=== PATIENT | male | born 1990 | race Caucasian/White ===

== ENCOUNTER 2017-04-05 13:29 | Observation (INO) | payer OTHER ==
--- NOTE | 2017-04-05 13:53 | PDOC ---
History of Present Illness <Jazmin Johnston - Last Filed: 04/05/17 22:03> - History of Present Illness Initial Comments: 26 year old male with history of occasional postprandial epigastric pain presenting with epigastric pain, nausea, and NBNB vomiting after attempting to eat a grilled cheese sandwich this afternoon. He usually takes some xantac with relief. He tried that today along with pepto bismal but it tid not help him. The pain is a 6/10 sharp epigastric pain that radiates to his back. Denies fevers chills, diarrhea, SOB, chest pain, cough, myalgias, or other sick symptoms. He does not have a PCP. 04/05/17 14:34 <Darvin Moorekatrin - Last Filed: 04/05/17 22:16> - General Chief Complaint: Pain, Acute Stated Complaint: ABD PAIN Time Seen by Provider: 04/05/17 13:53 Past History <Jazmin Johnston - Last Filed: 04/05/17 22:03> - Past Medical History CVA: No COPD: No - Immunization History Immunization Up to Date: Yes - Suicide/Smoking/Psychosocial Hx Smoking History: Never smoked Have you smoked in the past 12 months: No Information on smoking cessation initiated: No Hx Alcohol Use: No Drug/Substance Use Hx: No Substance Use Type: None <Darvin Moorejeraldmeet - Last Filed: 04/05/17 22:16> - Past Medical History Allergies/Adverse Reactions: Allergies Allergy/AdvReac Type Severity Reaction Status Date / Time No Known Allergies Allergy Verified 04/05/17 13:37 Home Medications: Ambulatory Orders Mag Hydrox/Aluminum Hyd/Simeth [Maalox Advanced Suspension] 148 ml PO BID PRN # 1 bottle 04/05/17 Ranitidine HCl [Zantac 75] 75 mg PO DAILY PRN 04/05/17 Review of Systems - Review of Systems Constitutional: No: Chills, Diaphoresis, Fever HEENTM: No: Blurred Vision, Recent change in vision Respiratory: No: Cough, Shortness of Breath, Wheezing Cardiac (ROS): No: Chest Pain, Irregular Heart Rate, Chest Tightness ABD/GI: Yes: Nausea, Vomiting. No: Diarrhea, Poor Appetite : No: Burning, Dysuria, Discharge Integumentary: No: Bruising, Erythema, Flushing, Lesions Neurological: No: Headache, Numbness <Quan Moore - Last Filed: 04/05/17 22:16> *Physical Exam - Vital Signs Last Vital Signs Temp Pulse Resp BP Pulse Ox 97.5 F L 92 H 16 152/94 100 04/05/17 13:37 04/05/17 13:37 04/05/17 13:37 04/05/17 13:37 04/05/17 13:37 <Jazmin Johnston - Last Filed: 04/05/17 22:03> - Vital Signs Last Vital Signs Temp Pulse Resp BP Pulse Ox 97.5 F L 92 H 16 152/94 100 04/05/17 13:37 04/05/17 13:37 04/05/17 13:37 04/05/17 13:37 04/05/17 13:37 - Physical Exam General Appearance: Yes: Nourished, Appropriately Dressed. No: Apparent Distress HEENT: positive: EOMI, TONIA, Normal ENT Inspection Neck: positive: Trachea midline, Normal Thyroid, Supple. negative: Tender, Rigid Respiratory/Chest: positive: Lungs Clear, Normal Breath Sounds. negative: Chest Tender, Respiratory Distress, Accessory Muscle Use Cardiovascular: positive: Regular Rhythm, Regular Rate Gastrointestinal/Abdominal: positive: Normal Bowel Sounds, Flat, Soft. negative : Tender Musculoskeletal: positive: Normal Inspection. negative: CVA Tenderness Extremity: positive: Normal Capillary Refill, Normal Inspection, Normal Range of Motion, Tender Integumentary: positive: Normal Color, Dry, Warm Neurologic: positive: Fully Oriented, Alert, Normal Mood/Affect, Normal Response , Motor Strength 5/5 <Darvin Moorejeraldmeet - Last Filed: 04/05/17 22:16> ED Treatment Course - LABORATORY CBC & Chemistry Diagram: 04/05/17 14:20 04/05/17 14:20 - ADDITIONAL ORDERS Additional order review: Laboratory Results 04/05/17 04/05/17 14:20 14:20 Sodium 139 Potassium 4.1 Chloride 104 Carbon Dioxide 26 Anion Gap 9 BUN 5 L Creatinine 1.1 Creat Clearance w eGFR > 60 Random Glucose 121 H Calcium 9.2 Total Bilirubin 1.5 H AST 654 H ALT 1042 H Alkaline Phosphatase 265 H Total Protein 8.8 H Albumin 3.9 Lipase 68 L Acetaminophen < 2.0 L 04/05/17 14:20 RBC 5.32 MCV 88.2 MCHC 32.8 RDW 12.9 MPV 7.7 Neutrophils % 84.3 H Lymphocytes % 9.7 Monocytes % 3.6 L Eosinophils % 1.5 Basophils % 0.9 - RADIOLOGY Radiology Studies Ordered: Category Date Time Status ABDOMEN US -LIMITED [US] Stat Ultrasound 04/05/17 19:57 Taken - Medications Given in the ED: ED Medications Discontinued Medications Generic Name Dose Route Start Last Admin Trade Name Cyndy PRN Reason Stop Dose Admin Al Hydroxide/Mg Hydroxide 30 ml 04/05/17 14:04 04/05/17 14:29 Mylanta Oral Suspension - PO 04/05/17 14:05 30 ml ONCE ONE Administration Ondansetron HCl 4 mg 04/05/17 14:19 04/05/17 14:29 Zofran Odt - SL 04/05/17 14:20 4 mg ONCE ONE Administration <Jazmin Johnston - Last Filed: 04/05/17 22:03> - LABORATORY CBC & Chemistry Diagram: 04/05/17 14:20 04/05/17 14:20 <Quan Moore - Last Filed: 04/05/17 22:16> Medical Decision Making - Medical Decision Making 26 year old previously healthy male with self diagnosed GERD presenting with gastritis and epigastric pain. Labs significant for transaminitis AST 600s with ALT 1K and elevated Alk phos + t-bili. CT abdomen pelvis without contrast performed to rule out biliary disease and for general liver evaluation. Viral hepatitis panel sent. Patient is not an drinker, smoker, and Tylenol level was < 2.0. THis is likely a viral hepatitis although transaminases aren't as high as would be expected. CT abd/pelvis appears grossly normal but pending final read. Spoke to patient regarding possible admission for hepatitis and signed out patient to Dr. Sotelo and Dr. Stauffer. 04/05/17 22:08 <Quan Moore - Last Filed: 04/05/17 22:16> *DC/Admit/Observation/Transfer <Jazmin Johnston - Last Filed: 04/05/17 22:03> - Discharge Dispostion Admit: No <Quan Moore - Last Filed: 04/05/17 22:16> Diagnosis at time of Disposition: Transaminitis, Epigastric pain - Discharge Dispostion Condition at time of disposition: Guarded - Prescriptions Prescriptions: Mag Hydrox/Aluminum Hyd/Simeth [Maalox Advanced Suspension] 148 ml PO BID PRN # 1 bottle PRN Reason: abdominal pain - Referrals Referrals: Aileen Almanzar MD [Primary Care Provider] - - Patient Instructions Printed Discharge Instructions: DI for Abdominal Pain-Adult
--- NOTE | 2017-04-05 13:55 | PDOC ---
Attending Attestation - Resident Resident Name: OscarDarvinjeraldmeet - HPI HPI: 04/05/17 16:11 Pt presents to the ED complaining of a one day history of burning epigastric pain and one episode of nausea and vomiting. Denies fevers or bowel complaints. Does have prior history of similar pain, resolved with zantac otc. - Physicial Exam PE: 04/05/17 16:13 Agree with resident exam. Patient is mildly tender to deep palpation in the epigastrium, without guarding or rebound. - Medical Decision Making 04/05/17 16:14 Pt presents to the ED complaining of epigastrium. Differential includes biliary disease, PUD, gastritis, pancreatitis. Labs so transaminitis without elevated lipase. WIll check CT to rule out biliary obstruction, check hepatitis panel, reassess.
[2017-04-05] MEDS ORDERED: MAG HYDROX/AL HYDROX/SIMETH 30 ML UNIT-DOSE CUP PO ONE (14:04)
[2017-04-05] MEDS ORDERED: ONDANSETRON *ODT* 4 MG TABLET SL ONE (14:19)
[2017-04-05] MEDS ORDERED: ONDANSETRON *ODT* 4 MG TABLET ONE (14:21)
[2017-04-05] MEDS ORDERED: MAG HYDROX/AL HYDROX/SIMETH 30 ML UNIT-DOSE CUP ONE (14:22)
[2017-04-05 14:37] LABS: BASO % 0.9 % (0-2.0); EOS % 1.5 % (0-4.5); HEMATOCRIT 46.9 % (35.4-49); HEMOGLOBIN 15.4 GM/dL (11.7-16.9); LYMPH % 9.7 % (8-40); MCH 28.9 pg (25.7-33.7); MCHC 32.8 g/dl (32.0-35.9); MEAN CELL VOLUME 88.2 fl (80-96); MEAN PLT VOLUME 7.7 fl (7.5-11.1); MONO % 3.6 % (3.8-10.2); NEUT % 84.3 % (42.8-82.8); PLATELET COUNT 395 K/MM3 (134-434); RBC 5.32 M/mm3 (4.00-5.60); RDW 12.9 % (11.9-15.9); WHITE BLOOD COUNT 10.5 K/mm3 (4.0-10.0)
[2017-04-05 15:03] LABS: ALBUMIN 3.9 g/dl (3.4-5.0); ANION GAP 9 (8-16); BILIRUBIN,TOTAL 1.5 mg/dL (0.2-1.0); BLOOD UREA NITROGEN 5 mg/dL (7-18); CALCIUM 9.2 mg/dL (8.5-10.1); CHLORIDE 104 mmol/L (98-107); CO2 26 mmol/L (21-32); CREATININE 1.1 mg/dL (0.7-1.3); GLUCOSE,RANDOM 121 mg/dL (74-106); LIPASE 68 U/L (73-393); POTASSIUM 4.1 mmol/L (3.5-5.1); SODIUM 139 mmol/L (136-145); TOT PROT 8.8 g/dl (6.4-8.2)
[2017-04-05 15:08] LABS: ALK PHOS 265 U/L (45-117)
[2017-04-05 15:09] LABS: SGOT/AST 654 U/L (15-37); SGPT/ALT 1042 U/L (12-78)
--- NOTE | 2017-04-05 18:55 | PDOC ---
*Physical Exam - Vital Signs Last Vital Signs Temp Pulse Resp BP Pulse Ox 97.5 F L 92 H 16 152/94 100 04/05/17 13:37 04/05/17 13:37 04/05/17 13:37 04/05/17 13:37 04/05/17 13:37 04/05/17 18:54 Patient's care endorsed to me by Dr. Moore at the end of his shift. 26 YOM p/w epigastric pain, nausea, and vomiting. Patient had elevated transaminases and thus CT ab/pel was ordered as well as hepatitis panel. Awaiting the read on the CT, and the results of hepatitis panel. ED Treatment Course - LABORATORY CBC & Chemistry Diagram: 04/06/17 06:25 04/06/17 06:25 - ADDITIONAL ORDERS Additional order review: Laboratory Results 04/05/17 04/05/17 14:20 14:20 Sodium 139 Potassium 4.1 Chloride 104 Carbon Dioxide 26 Anion Gap 9 BUN 5 L Creatinine 1.1 Creat Clearance w eGFR > 60 Random Glucose 121 H Calcium 9.2 Total Bilirubin 1.5 H AST 654 H ALT 1042 H Alkaline Phosphatase 265 H Total Protein 8.8 H Albumin 3.9 Lipase 68 L Acetaminophen < 2.0 L 04/05/17 14:20 RBC 5.32 MCV 88.2 MCHC 32.8 RDW 12.9 MPV 7.7 Neutrophils % 84.3 H Lymphocytes % 9.7 Monocytes % 3.6 L Eosinophils % 1.5 Basophils % 0.9 - Medications Given in the ED: ED Medications Discontinued Medications Generic Name Dose Route Start Last Admin Trade Name Freq PRN Reason Stop Dose Admin Al Hydroxide/Mg Hydroxide 30 ml 04/05/17 14:04 04/05/17 14:29 Mylanta Oral Suspension - PO 04/05/17 14:05 30 ml ONCE ONE Administration Ondansetron HCl 4 mg 04/05/17 14:19 04/05/17 14:29 Zofran Odt - SL 04/05/17 14:20 4 mg ONCE ONE Administration Medical Decision Making - Medical Decision Making CT Abdomen/Pelvis shows overly distended GB with 11.7 cm saggital length. Also bibasilar atelectasis, borderline splenomegaly. The patient has continued epigastric ttp on exam. RUQ US is ordered, results e/o overdistention of GB but no stones or e/o cholecystitis. Spoke with Tommy, admitting to Dr. Quinones to Med/Surg. Decision to Admit order placed. *DC/Admit/Observation/Transfer Diagnosis at time of Disposition: Transaminitis, Epigastric pain - Discharge Dispostion Condition at time of disposition: Guarded Admit: Yes - Referrals - Patient Instructions - Post Discharge Activity
--- NOTE | 2017-04-05 22:44 | HP ---
CHIEF COMPLAINT: epigastric pain PCP: Georgette HISTORY OF PRESENT ILLNESS: This is a 26-year-old male without significant past medical history of presents to emergency department with sudden onset epigastric pain at approximately 3 AM which woke patient from sleep. Patient unable to get comfortable for 1 hour for which he went to pharmacy and purchased [id number] Zantac and Libby-[place] without any relief. He tried retaken the medications at approximately 8 AM with no relief. Approximately 1: 00 this afternoon he ate some grilled cheese and maced[place] fries and vomited. At this point he decided to come to the emergency department for further evaluation. He denies fevers, chills, chest pain, shortness of breath, nausea, diarrhea. ER course was notable for: (1) AST/ALT/Alk phos- 654/1042/265 (2) Lipase- 68 (3) CTAP- as read by Dr. Milligan: 1. Mild hepatic stenosis. 2. No evidence of intrahepatic/extrahepatic biliary dilatation. 3. Moderate distention of the gallbladder. Recommend ultrasound to further characterize. Recent Travel: denies PAST MEDICAL HISTORY: asthma PAST SURGICAL HISTORY: denies Social History: Smoking: denies Alcohol: denies Drugs: denies Family History: Allergies No Known Allergies Allergy (Verified 04/05/17 13:37) HOME MEDICATIONS: Home Medications Medication Instructions Recorded Mag Hydrox/Aluminum Hyd/Simeth 148 ml PO BID PRN #1 bottle 04/05/17 [Maalox Advanced Suspension] Ranitidine HCl [Zantac 75] 75 mg PO DAILY PRN 04/05/17 REVIEW OF SYSTEMS CONSTITUTIONAL: Absent: fever, chills, diaphoresis, generalized weakness, malaise, loss of appetite, weight change HEENT: Absent: rhinorrhea, nasal congestion, throat pain, throat swelling, difficulty swallowing, mouth swelling, ear pain, eye pain, visual changes CARDIOVASCULAR: Absent: chest pain, syncope, palpitations, irregular heart rate, lightheadedness , peripheral edema RESPIRATORY: Absent: cough, shortness of breath, dyspnea with exertion, orthopnea, wheezing, stridor, hemoptysis GASTROINTESTINAL: Present- abdominal pain, vomiting Absent: abdominal distension, nausea, diarrhea, constipation, melena, hematochezia GENITOURINARY: Absent: dysuria, frequency, urgency, hesitancy, hematuria, flank pain, genital pain MUSCULOSKELETAL: Absent: myalgia, arthralgia, joint swelling, back pain, neck pain SKIN: Absent: rash, itching, pallor HEMATOLOGIC/IMMUNOLOGIC: Absent: easy bleeding, easy bruising, lymphadenopathy, frequent infections ENDOCRINE: Absent: unexplained weight gain, unexplained weight loss, heat intolerance, cold intolerance NEUROLOGIC: Absent: headache, focal weakness or paresthesias, dizziness, unsteady gait, seizure, mental status changes, bladder or bowel incontinence PSYCHIATRIC: Absent: anxiety, depression, suicidal or homicidal ideation, hallucinations. PHYSICAL EXAMINATION Vital Signs - 24 hr 04/05/17 13:37 Temperature 97.5 F L Pulse Rate 92 H Respiratory 16 Rate Blood Pressure 152/94 O2 Sat by Pulse 100 Oximetry (%) GENERAL: Awake, alert, and fully oriented, in no acute distress. HEAD: Normal with no signs of trauma. EYES: Pupils equal, round and reactive to light, extraocular movements intact, sclera anicteric, conjunctiva clear. No lid lag. EARS, NOSE, THROAT: Ears normal, nares patent, oropharynx clear without exudates. Moist mucous membranes. NECK: Normal range of motion, supple without lymphadenopathy, JVD, or masses. LUNGS: Breath sounds equal, clear to auscultation bilaterally. No wheezes, and no crackles. No accessory muscle use. HEART: Regular rate and rhythm, normal S1 and S2 without murmur, rub or gallop. ABDOMEN: Soft, nontender, not distended, normoactive bowel sounds, no guarding, no rebound, no masses. No hepatomegaly or splenomegaly. MUSCULOSKELETAL: Normal range of motion at all joints. No bony deformities or tenderness. No CVA tenderness. UPPER EXTREMITIES: 2+ pulses, warm, well-perfused. No cyanosis. No clubbing. No peripheral edema. LOWER EXTREMITIES: 2+ pulses, warm, well-perfused. No calf tenderness. No peripheral edema. NEUROLOGICAL: Cranial nerves II-XII intact. Normal speech. Normal gait. PSYCHIATRIC: Cooperative. Good eye contact. Appropriate mood and affect. SKIN: Warm, dry, normal turgor, no rashes or lesions noted, normal capillary refill. Laboratory Results - last 24 hr 04/05/17 04/05/17 04/05/17 14:20 14:20 14:20 WBC 10.5 H RBC 5.32 Hgb 15.4 Hct 46.9 MCV 88.2 MCH 28.9 MCHC 32.8 RDW 12.9 Plt Count 395 MPV 7.7 Neutrophils % 84.3 H Lymphocytes % 9.7 Monocytes % 3.6 L Eosinophils % 1.5 Basophils % 0.9 Sodium 139 Potassium 4.1 Chloride 104 Carbon Dioxide 26 Anion Gap 9 BUN 5 L Creatinine 1.1 Creat Clearance w eGFR > 60 Random Glucose 121 H Calcium 9.2 Total Bilirubin 1.5 H AST 654 H ALT 1042 H Alkaline Phosphatase 265 H Total Protein 8.8 H Albumin 3.9 Lipase 68 L Acetaminophen < 2.0 L ASSESSMENT/PLAN: A: 26-year-old man with resolved abdominal pain and elevated LFTs P: Transaminitis - ? gallbladder disease - CT without CBD dilatation - US read pending - hepatitis panel pending - GI consult F/E/N - replete prn - regular diet PPX - OOB Dispo- requires observation of acute condition Visit type - Emergency Visit Emergency Visit: Yes ED Registration Date: 04/05/17 Care time: The patient presented to the Emergency Department on the above date and was hospitalized for further evaluation of their emergent condition. - New Patient This patient is new to me today: Yes Date on this admission: 04/06/17 - Critical Care Critical Care patient: No
[2017-04-05] MEDS ORDERED: RANITIDINE HCL 150 MG TABLET (FP) PO PRN (22:56)
[2017-04-06 04:17] VITALS: BMI 31.8
[2017-04-06 08:04] LABS: CHLORIDE 105 mmol/L (98-107); POTASSIUM 4.7 mmol/L (3.5-5.1); SODIUM 142 mmol/L (136-145)
[2017-04-06 08:14] LABS: EOS % 5.1 % (0-4.5); HEMOGLOBIN 14.2 GM/dL (11.7-16.9); LYMPH % 20.9 % (8-40); MCH 28.7 pg (25.7-33.7); MCHC 32.4 g/dl (32.0-35.9); MEAN CELL VOLUME 88.6 fl (80-96); MEAN PLT VOLUME 8.1 fl (7.5-11.1); MONO % 6.7 % (3.8-10.2); NEUT % 66.3 % (42.8-82.8); PLATELET COUNT 346 K/MM3 (134-434); RBC 4.96 M/mm3 (4.00-5.60); RDW 13.1 % (11.9-15.9); WHITE BLOOD COUNT 7.7 K/mm3 (4.0-10.0)
[2017-04-06 08:31] LABS: ALBUMIN 3.3 g/dl (3.4-5.0); ALK PHOS 242 U/L (45-117); ANION GAP 9 (8-16); BILIRUBIN,TOTAL 1.3 mg/dL (0.2-1.0); BLOOD UREA NITROGEN 6 mg/dL (7-18); CALCIUM 8.7 mg/dL (8.5-10.1); CO2 28 mmol/L (21-32); CREATININE 1.2 mg/dL (0.7-1.3); GLUCOSE,RANDOM 94 mg/dL (74-106); LIPASE 98 U/L (73-393); SGOT/AST 318 U/L (15-37); TOT PROT 7.3 g/dl (6.4-8.2)
[2017-04-06 08:49] LABS: SGPT/ALT 805 U/L (12-78)
[2017-04-06] MEDS ORDERED: IBUPROFEN 400 MG TABLET (FP) PO ONE (12:24)
--- NOTE | 2017-04-06 12:33 | EKG ---
Test Reason : Blood Pressure : / mmHG Vent. Rate : 083 BPM Atrial Rate : 083 BPM P-R Int : 168 ms QRS Dur : 096 ms QT Int : 348 ms P-R-T Axes : 041 -01 -03 degrees QTc Int : 408 ms NORMAL SINUS RHYTHM POOR R WAVE PROGRESSION ABNORMAL ECG NO PREVIOUS ECGS AVAILABLE NOTE ERROR IN LEAD V4, RECOMMEND REPEAT TRACING Confirmed by TIN ROJAS MD ([id number]) on 04/06/2017 12:33:27 PM Referred By: Confirmed By:TIN ROJAS MD
--- NOTE | 2017-04-06 12:37 | PN ---
Progress Note (short form) - Note Progress Note: Subjective: The patient was seen and examined at the bedside, he denies any abdominal pain at this time He reports headache He denies any alcohol or drug use Current Medications Generic Name Dose Route Start Last Admin Trade Name Freq PRN Reason Stop Dose Admin Ranitidine HCl 75 mg 04/05/17 22:56 Zantac - PO DAILY PRN DYSPEPSIA Objective: Vital Signs Period Temp Pulse Resp BP Sys/Stewart Pulse Ox Last 24 Hr 97.4 F-98.2 F 72-92 16-20 107-152/65-94 96-100 Physical Exam: General: NAD, A&Ox3 Lungs: CTA bilaterally Heart: RRR, S1S2 Abd: Soft, non-tender, non-distended. Normoactive bowel sounds Ext: Warm, well-perfused. 2+ DP/PT bilaterally Neuro: CN 2-12 intact CBCD WBC 7.7 K/mm3 (4.0-10.0) 04/06/17 06:25 RBC 4.96 M/mm3 (4.00-5.60) 04/06/17 06:25 Hgb 14.2 GM/dL (11.7-16.9) 04/06/17 06:25 Hct 44.0 % (35.4-49) 04/06/17 06:25 MCV 88.6 fl (80-96) 04/06/17 06:25 MCHC 32.4 g/dl (32.0-35.9) 04/06/17 06:25 RDW 13.1 % (11.9-15.9) 04/06/17 06:25 Plt Count 346 K/MM3 (134-434) 04/06/17 06:25 MPV 8.1 fl (7.5-11.1) 04/06/17 06:25 CMP Sodium 142 mmol/L (136-145) 04/06/17 06:25 Potassium 4.7 mmol/L (3.5-5.1) 04/06/17 06:25 Chloride 105 mmol/L (98-107) 04/06/17 06:25 Carbon Dioxide 28 mmol/L (21-32) 04/06/17 06:25 Anion Gap 9 (8-16) 04/06/17 06:25 BUN 6 mg/dL (7-18) L 04/06/17 06:25 Creatinine 1.2 mg/dL (0.7-1.3) 04/06/17 06:25 Creat Clearance w eGFR > 60 (>60) 04/06/17 06:25 Random Glucose 94 mg/dL (74-106) D 04/06/17 06:25 Calcium 8.7 mg/dL (8.5-10.1) 04/06/17 06:25 Total Bilirubin 1.3 mg/dL (0.2-1.0) H 04/06/17 06:25 AST 318 U/L (15-37) H D 04/06/17 06:25 ALT 805 U/L (12-78) H D 04/06/17 06:25 Alkaline Phosphatase 242 U/L (45-117) H 04/06/17 06:25 Total Protein 7.3 g/dl (6.4-8.2) 04/06/17 06:25 Albumin 3.3 g/dl (3.4-5.0) L 04/06/17 06:25 CARDIAC ENZYMES Creatine Kinase 64 IU/L (39-308) 04/06/17 06:25 Troponin I < 0.02 ng/ml (0.00-0.05) 04/06/17 06:25 Assessment: This is a 26 year old male with no significant PMHx who presented to the ED with sudden onset epigastric pain Plan: 1) Epigastric pain - Resolved 2) Transaminitis - Improving - Patient denies any alcohol use - Liver ultrasound with distended gallbladder 9cm with borderline thickening of the wall - F/u hepatitis panel - F/u GI recommendations 3) F/E/N: - Regular diet - Monitor electrolytes 4) Prophylaxis: - OOB ambulating 5) Dispo: - Once condition improves CODE STATUS: FULL CODE Visit type - Emergency Visit Emergency Visit: Yes ED Registration Date: 04/05/17 Care time: The patient presented to the Emergency Department on the above date and was hospitalized for further evaluation of their emergent condition. - New Patient This patient is new to me today: Yes Date on this admission: 04/06/17 - Critical Care Critical Care patient: No
--- NOTE | 2017-04-06 14:10 | CON.GI ---
Consult Consult Specialty:: GI Reason for Consultation:: Heartburn x 1 day. Transaminitis. - History of Present Illness History of Present Illness: Chart reviewed. Family at bedside. The pt is awake, alert and oriented. Not in distress. Pain-free. This is a 26 yom, overweight otherwise no chronic medical issues, or chronic medications. Takes Zantac PRN, and recently Libby-[place] for heartburn, no other OTC, herbal, supplements. No alcohol, street drugs. No ill contacts, contacts with known hepatitis. Denies prior issues with the liver. No family history of autoimmune, or viral hepatitis. Had a professionally done wrist tattoo 2 y ago. The pt presents to ED w/ complaint of 1 day of heartburn-like dyspepsia. No nausea, vomiting, changes in bms, jaundice, fever, chills, URI. No joint, skin, eye, back symptoms. No dysphagia, odynophagia, epigastric pain. Noted in ED to have ALT>1000, AST in 600s with mildly elevated t. bili and ALP. US of the liver showed 9 cm GB, negative for stones, or dilated CBD. At the time of this encounter, the patient is asymptomatic with a negative physical exam (incl. negative myrphy's, and unicteric). Tolerating current diet. - History Source History Provided By: Patient - Alcohol/Substance Use Hx Alcohol Use: No - Smoking History Smoking history: Never smoked Have you smoked in the past 12 months: No Home Medications - Allergies Allergies/Adverse Reactions: Allergies Allergy/AdvReac Type Severity Reaction Status Date / Time No Known Allergies Allergy Verified 04/05/17 13:37 - Home Medications Home Medications: Ambulatory Orders Mag Hydrox/Aluminum Hyd/Simeth [Maalox Advanced Suspension] 148 ml PO BID PRN # 1 bottle 04/05/17 Ranitidine HCl [Zantac 75] 75 mg PO DAILY PRN 04/05/17 Family Disease History - Family Disease History Family History: Unremarkable (non-contributory) Review of Systems Findings/Remarks: As per HPI, H&P Physical Exam-GI Vital Signs: Vital Signs Temperature 97.5 F L 04/06/17 13:21 Pulse Rate 88 04/06/17 13:21 Respiratory Rate 18 04/06/17 13:21 Blood Pressure 134/81 04/06/17 13:21 O2 Sat by Pulse Oximetry (%) 99 04/05/17 23:16 Constitutional: Yes: Well Nourished, No Distress, Calm Eyes: Yes: Conjunctiva Clear HENT: Yes: Atraumatic Neck: Yes: Supple Cardiovascular: Yes: Regular Rate and Rhythm Respiratory: Yes: Regular Gastrointestinal Inspection: No: Ascites, Distention ...Auscultate: Yes: Normoactive Bowel Sounds ...Palpate: Yes: Soft. No: Firm/Rigid, Guarding, Mass, Tenderness, Tenderness, Epigastium, Tenderness, Rebound Integumentary: No: Jaundice Neurological: Yes: Alert, Oriented Labs: CBC, BMP 04/06/17 06:25 04/06/17 06:25 Laboratory Tests 04/05/17 04/05/17 04/05/17 14:20 14:20 14:20 WBC 10.5 H RBC 5.32 Hgb 15.4 Hct 46.9 MCV 88.2 MCH 28.9 MCHC 32.8 RDW 12.9 Plt Count 395 MPV 7.7 Neutrophils % 84.3 H Lymphocytes % 9.7 Monocytes % 3.6 L Eosinophils % 1.5 Basophils % 0.9 Sodium 139 Potassium 4.1 Chloride 104 Carbon Dioxide 26 Anion Gap 9 BUN 5 L Creatinine 1.1 Creat Clearance w eGFR > 60 Random Glucose 121 H Calcium 9.2 Total Bilirubin 1.5 H AST 654 H ALT 1042 H Alkaline Phosphatase 265 H Creatine Kinase Troponin I Total Protein 8.8 H Albumin 3.9 Lipase 68 L Acetaminophen < 2.0 L 04/06/17 04/06/17 04/06/17 06:25 06:25 06:25 WBC 7.7 RBC 4.96 Hgb 14.2 Hct 44.0 MCV 88.6 MCH 28.7 MCHC 32.4 RDW 13.1 Plt Count 346 MPV 8.1 Neutrophils % 66.3 D Lymphocytes % 20.9 D Monocytes % 6.7 D Eosinophils % 5.1 H D Basophils % 1.0 Sodium 142 Potassium 4.7 Chloride 105 Carbon Dioxide 28 Anion Gap 9 BUN 6 L Creatinine 1.2 Creat Clearance w eGFR > 60 Random Glucose 94 D Calcium 8.7 Total Bilirubin 1.3 H AST 318 H D ALT 805 H D Alkaline Phosphatase 242 H Creatine Kinase 64 Cancelled Troponin I < 0.02 Cancelled Total Protein 7.3 Albumin 3.3 L Lipase 98 Acetaminophen Imaging - Results Cat Scan: Pending Ultrasound: Report Reviewed Problem List - Problems (1) Epigastric pain Code(s): R10.13 - EPIGASTRIC PAIN (2) Transaminitis Code(s): R74.0 - NONSPEC ELEV OF LEVELS OF TRANSAMNS & LACTIC ACID DEHYDRGNSE Assessment/Plan A 26 yom with no obvious risk factors for ischemic, alcoholic, or viral hepatitis. Took Zantac and Libby-[place] for heartburn symptoms. The patient presents to ED with elevated, hepatocellular pattern, liver enzymes and mild cholestasis. These appear to be trending down on repeat blood work. PT/INR not available. Lipase normal. Not anemic. Serum acetominophen level <2. Negative for encephalopathy, jaundice, or GB pathology exam. Asymptomatic and tolerating current diet. Family at bedside. ?Drug-related reaction, ?idiopathic reaction to NSAIDs? Follow acute viral hepatitis panel CMV, EBV, VZ, Iron panel, PT/INR AMMON, AMA, ASMA, ALKM-1, A1AT, IgG, Ceruloplasmin (these can be done on OP bases) Avoid NSAIDs OK to continue Zantac
--- NOTE | 2017-04-06 15:34 | DS ---
Physical Examination Vital Signs: Vital Signs Temperature 97.5 F L 04/06/17 13:21 Pulse Rate 88 04/06/17 13:21 Respiratory Rate 18 04/06/17 13:21 Blood Pressure 134/81 04/06/17 13:21 O2 Sat by Pulse Oximetry (%) 99 04/05/17 23:16 Labs: CBC, BMP 04/06/17 06:25 04/06/17 06:25 Discharge Summary Reason For Visit: ELEVATED TRANSAMINASE,EPIGASTRIC PAIN Current Active Problems Epigastric pain (Acute) Transaminitis (Acute) Hospital Course: Discussed with Dr. Marino who recommends discharge after labs drawn with follow- up as outpatient for test results Condition: Improved - Instructions Diet, Activity, Other Instructions: Please return to the ED with new, persistent, or worsening symptoms. Please follow-up with providers as indicated. Avoid Tylenol and NSAIDs until you are re-evaluated by Dr. Marino. Referrals: Aileen Almanzar MD [Primary Care Provider] - (Please follow-up with your primary care provider within 2-3 days) Talib Marino MD [Staff Physician] - (Please follow-up with Dr. Marino ( gastrointestinal doctor) within 3-5 days for repeat liver function testing and to follow-up on the blood tests you had while your were at [facility]) Disposition: HOME - Home Medications Comprehensive Discharge Medication List: Ambulatory Orders Ranitidine HCl [Zantac 75] 75 mg PO DAILY PRN 04/05/17
[2017-04-06 17:04] VITALS: BP 123/75; PULSE 90; TEMP 98.2
[2017-04-06 17:54] LABS: INR 1.07 (0.82-1.09); PROTHROMBIN TIME (PATIENT) 12.1 SEC (9.98-11.88)
[2017-04-08 08:07] LABS: CMV IgM < 30.0 AU/mL (0.0-29.9)
[2017-04-12 14:10] LABS: VARICELLA-ZOSTER IGM < 0.91 index (0.00-0.90)
== END 2017-04-06 15:19 | disposition home or self-care (01) ==
LOC: JER 13:29 → JERBED 22:05 → J7W 04-06 03:27
PROVIDERS: ADMIT Internal Medicine; ATTEND Registered Nurse
DX: R74.0 Nonspecific elevation of levels of transaminase and lactic acid dehydrogenase [LDH] (principal); R10.13 Epigastric pain
CPT/HCPCS: 36415; 71046-TC-FY; 74176-TC; 76705-TC; 80053; 80074; 80307; 82550; 82784; 82787; 83516; 83540; 83550; 83690; 83883; 84484; 85025; 85610; 86038; 86376; 86645; 86664; 86787; 93005; 93010; 99283-25; G0378; Q0162